=== PATIENT | male | born 1960 | race Caucasian/White ===

== ENCOUNTER → 2023-01-24 | Outpatient (CLI) | payer BC ==
--- NOTE | 2023-01-26 18:48 | CT ---
EXAMINATION TYPE: CT angio abdomen pelvis CT DLP: 788 mGycm, Automated exposure control for dose reduction was used. DATE OF EXAM: 01/24/2023 8:47 AM COMPARISON: None CLINICAL INDICATION:Male, 62 years old with history of I77.3 ARTERIAL FIBROMUSCULAR DYS; PHH, Arteria l fibromuscular dysplasia. TECHNIQUE: Multiple thin slice sub-millimeter images were obtained after administration of contrast. 3-D reconstructed images and maximum intensity projection images were obtained. CT angio abdomen pel vis CT Contrast: Contrast used:100ml mL of Isovue 370 without and with IV Contrast, Oral contrast used: without Oral Contrast None FINDINGS: CTA Abdomen and pelvis: No evidence for intramural hematoma noncontrast imaging. Scattered atheroscle rotic disease is seen throughout the arterial vasculature. The origins of the major vessels of the ao rta are patent. 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 Superior mesenteric artery is patent. The bilateral renal arteries are patent. Irregular morphology to a right renal artery with nodularity series 6 image 85-90. The left renal arteries are within normal limits and patent. The inferior mesenteric artery is patent. There is a saccular aneurysm best appreciated on coronal imaging at the bifurcation of the left commo n iliac artery measuring 24 x 39 mm. LOWER CHEST: No evidence of focal consolidation, pneumothorax or pleural effusion. LIVER: Unremarkable GALLBLADDER AND BILE DUCTS: Unremarkable. PANCREAS: Unremarkable. SPLEEN: Unremarkable. ADRENAL GLANDS: Unremarkable. KIDNEYS AND URETERS: No evidence of hydronephrosis or renal calculus. The ureters are unremarkable. PELVIS BLADDER: Unremarkable REPRODUCTIVE: Unremarkable. ABDOMEN & PELVIS STOMACH AND BOWEL: No evidence of bowel obstruction. Scattered colonic diverticula are present. Surgi get changes to the bowel in the left upper quadrant. PERITONEUM: No evidence of pneumoperitoneum or free fluid. VASCULATURE: No evidence of aortic aneurysm. MUSCULOSKELETAL: No acute osseous abnormalities, multilevel disc degeneration changes throughout spin e. Grade 1 anterolisthesis of L5 and S1 bilateral pars interarticularis defects. LYMPH NODES: No gross evidence for lymphadenopathy. SOFT TISSUE/ABDOMINAL WALL: Post surgical changes to the anterior abdominal wall. IMPRESSION 1. No evidence of vascular occlusion. 2. Atherosclerotic disease involving abdominal aorta. 3. Irregular morphology to one of the right renal artery branches suggestive of possible fibromuscula r dysplasia. 4. 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 5. 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 6. Grade 1 anterolisthesis of L5 on S1 without spondylolysis.
== END | disposition home or self-care (01) ==
LOC: RADCTMAIN 08:04
PROVIDERS: ATTEND Surgery
DX: I77.3 Arterial fibromuscular dysplasia (principal); M43.17 Spondylolisthesis, lumbosacral region; I70.0 Atherosclerosis of aorta; I67.1 Cerebral aneurysm, nonruptured
CPT/HCPCS: 74174; Q9967